=== PATIENT | female | born 1980 | race Asian ===

== ENCOUNTER 2021-01-30 02:27 | Emergency (ER) | payer SELFPAY ==
[~2021-01-30] VITALS: Ht 157.5 cm; Wt 52.2 kg
[2021-01-30] MEDS ORDERED: EPINEPHrine HCL 1 MG/10 ML SYRG ONE (03:03)
[2021-01-30] MEDS ORDERED: diphenhdrAMINE HCL 50 MG/1 ML VL ONE (03:11)
[2021-01-30] MEDS ORDERED: EPINEPHrine HCL 1 MG/1 ML AMP IM ONE (03:15)
[2021-01-30] MEDS ORDERED: FAMOTIDINE (10MG/ML) 2ML VL IV ONE (03:15)
[2021-01-30] MEDS ORDERED: methylPREDNISolone SOD SUCC 125 MG/2 ML VL IV ONE (03:15)
[2021-01-30] MEDS ORDERED: diphenhdrAMINE HCL 50 MG/1 ML VL IV ONE (03:15)
[2021-01-30] MEDS ORDERED: SODIUM CHLORIDE 0.9% 1,000 ML IV ONE (03:15)
[2021-01-30 06:15] VITALS: BP 100/69
== END 2021-01-30 06:24 | disposition home or self-care (01) ==
LOC: ER 02:34
DX: T78.2XXA Anaphylactic shock, unspecified, initial encounter (principal); X58.XXXA Exposure to other specified factors, initial encounter; Y93.89 Activity, other specified; Y92.89 Other specified places as the place of occurrence of the external cause; Y99.8 Other external cause status
CPT/HCPCS: 96361; 96374; 96375; 99285; J0171; J1200; J2930; J3490